=== PATIENT | female | born 1980 | race Caucasian/White ===

== ENCOUNTER 2018-10-12 09:36 | Emergency (ER) | payer SELFPAY ==
--- NOTE | 2018-10-12 09:36 | NUR ---
PATIENT BIBA TO BED 9 AT THIS TIME.
--- NOTE | 2018-10-12 09:40 | NUR ---
ambulated out of the er with steady gait---decided she did not want to be seen full clear speech
== END 2018-10-12 09:40 | disposition left against medical advice (07) ==
LOC: MED 09:36
DX: Z53.21 Procedure and treatment not carried out due to patient leaving prior to being seen by health care provider (principal)